=== PATIENT | male | born 1935 | race Caucasian/White ===

== ENCOUNTER 2018-11-24 11:13 | Emergency (ER) | payer OTHER, SELFPAY ==
[2018-11-24 11:26] VITALS: BP 124/70; PULSE 69; RESP 16; TEMP 36.2; O2SAT 99
--- NOTE | 2018-11-24 11:43 | W.ED.GENAD ---
Discharge Plan Disposition Patient Disposition: HOME Condition: Stable Discharge Details Chief Complaint: Laceration Clinical Impression: Abrasion forearm Primary Care Provider: Kiera,Local ED Provider: Bob Crocker Home Meds and New Rx's Prescriptions: Continued simvastatin 40 mg Tablet 40 mg PO DAILY RF: 0 metformin 1,000 mg Tablet 1,000 mg PO BID RF: 0 Januvia 50 mg Tablet 50 mg PO DAILY RF: 0 Discharge Instructions Instructions: Abrasion (ED) Additional Instructions: Continue to use [id number] topical antibiotic ointment and keep keep wound clean and dry. Return immediately to the emergency department for any new or worsening symptoms otherwise follow-up with your primary care provider as needed for reassessment Referrals: Primary Care Provider [Outside] (As needed for reassessment) Discharge Data Discharge Date/Time-TO BE ENTERED AT DEPARTURE: 11/24/18 11:54 Medical Decision Making 2 small abrasions/skin tears to right forearm, long linear abrasion to left forearm. Mild ecchymosis surrounding otherwise no significant erythema, no signs of infection, no other worrisome findings. Patient states that he is unsure of his last tetanus but states possibility of it being greater than 10 years ago. Patient given Tdap and wounds were appropriately dressed and covered with bacitracin. Return precautions discussed. HPI General Mode of arrival: ambulatory. Date/Time Provider Initiated Documentation: 11/24/18 11:27. Limitations to Documentation: no limitations. Information obtained by: patient and RN notes reviewed. History of Present Illness 83 year old M presents to the emergency department with the chief complaint of laceration, described as mild, with intensity rated at 2. Quality is described as aching, and is localized to the upper extremity (bilateral ). Patient started experiencing this hour(s) (1) and it has been constant. No relieving factors improve symptom(s), Patient did receive the following treatments prior to arrival, none Related Data Home Medications Medication Instructions Recorded Confirmed Januvia 50 mg PO DAILY 11/24/18 11/24/18 metformin 1,000 mg PO BID 11/24/18 11/24/18 simvastatin 40 mg PO DAILY 11/24/18 11/24/18 Allergies Allergy/AdvReac Type Severity Reaction Status Date / Time amoxicillin Allergy Severe Skin Rash Unverified 11/24/18 11:29 General Stated Complaint: Laceration CHERRY: 4 Review of Systems Musculoskeletal Denies deformity, Denies limited range of motion and Denies numbness Integumentary/Breasts Reports as per HPI Neurologic Denies numbness and Denies paresthesias [facility] Social History Smoking/Tobacco Use Status: Never Substance use type: does not use Exam Const General: cooperative and no acute distress Orientation: alert, awake and oriented x3 Limitations: mental status not altered Resp Effort & Inspection: normal respiratory effort and able to speak in complete sentences Cardio Rate: regular rate Rhythm: regular rhythm Extrem General: normal exam except as noted Right upper extremity: elbow/forearm Details: abrasion (2 flap abrasion) Left upper extremity: elbow/forearm Details: abrasion (7cm Linear abrasion) Course Vital Signs Temperature 36.2 C L 11/24/18 11:26 Pulse 69 11/24/18 11:26 Respiratory Rate 16 11/24/18 11:26 Blood Pressure 124/70 11/24/18 11:26 Pulse Oximetry 99 11/24/18 11:26 Temperature 36.2 C L 11/24/18 11:26 Temperature Source Skin 11/24/18 11:26 Pulse 69 11/24/18 11:26 Respiratory Rate 16 11/24/18 11:26 Respiratory Effort Non-Labored 11/24/18 11:26 Blood Pressure 124/70 11/24/18 11:26 Blood Pressure Position Sitting 11/24/18 11:26 Pulse Oximetry 99 11/24/18 11:26 Oxygen Delivery Method Room Air 11/24/18 11:26 Oxygen Flow Rate 0 11/24/18 11:26 Pain Level 0 11/24/18 11:26
== END 2018-11-24 11:54 | disposition home or self-care (01) ==
PROVIDERS: Emergency Provider Nurse Practitioner Family
DX: S50.812A Abrasion of left forearm, initial encounter (principal); W54.8XXA Other contact with dog, initial encounter
CPT/HCPCS: 90471; 99282